=== PATIENT | female | born 1995 | race Caucasian/White ===

== ENCOUNTER 2021-05-14 15:31 | Emergency (ER) | payer OTHER ==
[~2021-05-14] VITALS: Ht 165.1 cm; Wt 53.5 kg
--- NOTE | 2021-05-14 15:49 | NUR ---
TO ER BED 2. BIB SELF C/O R BIG TOE PAIN S/P PIANO STOOL FELL ON TOP OF HER FOOT . AWAITING MD BECKER
[2021-05-14] MEDS ORDERED: IBUPROFEN 400 MG TABLET PO ONE (16:00)
[2021-05-14] MEDS ORDERED: IBUPROFEN 400 MG TABLET ONE (16:08)
--- NOTE | 2021-05-14 16:13 | NUR ---
XRAY AT BEDSIDE
[2021-05-14 17:19] VITALS: BP 125/77
== END 2021-05-14 17:20 | disposition home or self-care (01) ==
LOC: ER 15:34
DX: S92.421A Displaced fracture of distal phalanx of right great toe, initial encounter for closed fracture (principal); W20.8XXA Other cause of strike by thrown, projected or falling object, initial encounter; Y93.89 Activity, other specified; Y92.89 Other specified places as the place of occurrence of the external cause; Y99.8 Other external cause status
CPT/HCPCS: 73630-TC; 73660-TC